=== PATIENT | female | born 1960 | race American Indian/Alaskan Native ===

== ENCOUNTER 2017-11-29 22:21 | Emergency (ER) | payer MEDICAID ==
[2017-11-29 22:22] VITALS: BMI 70.4
[2017-11-29] MEDS ORDERED: Tramadol 25 mg PO STA (22:55)
--- NOTE | 2017-11-30 01:02 | C.PDOC ---
History Of Present Illness 57 y/o female presents to the ED complaining of left great toe injury, sustained today. States she tripped while walking to temple, injuring the toe. Patient was able to ambulate to temple and back but noticed worsening pain upon arrival home. No numbness, tingling, or focal weakness. - HPI Time Seen by Provider: 11/29/17 22:44 Chief Complaint (Nursing): Trauma History Per: Patient History/Exam Limitations: no limitations Injury Occurred (Timing): Today @ (this morning) Past Medical History Reviewed: Historical Data, Nursing Documentation, Vital Signs Vital Signs: Last Vital Signs Temp 98.2 F 11/30/17 01:15 Pulse 78 11/30/17 01:15 Resp 20 11/30/17 01:15 BP 142/74 11/30/17 01:15 Pulse Ox 98 11/30/17 03:58 - Medical History PMH: CHF, HTN, Hypothyroidism, Pulmonary Embolism (silvestre arms) Family History: States: Unknown Family Hx - Social History Hx Tobacco Use: No Hx Alcohol Use: No Hx Substance Use: No - Immunization History Hx Tetanus Toxoid Vaccination: No Hx Influenza Vaccination: No Hx Pneumococcal Vaccination: No Review Of Systems Except As Marked, All Systems Reviewed And Found Negative. Musculoskeletal: Positive for: Other (left great toe pain) Neurological: Negative for: Weakness, Numbness (and tingling) Physical Exam - Physical Exam Appears: Non-toxic, No Acute Distress, Other (Morbidly obese) Skin: Normal Color, Warm, Dry Head: Atraumatic, Normacephalic Eye(s): bilateral: Normal Inspection, PERRL Neck: Normal ROM, Supple Extremity: Tenderness (to the left great toe, at distal DIP. No erythema or warmth), No Calf Tenderness, Capillary Refill (normal), No Deformity, Swelling ( chronic bilateral lower leg edema), Other (Chronic skin changes to bilateral feet and ankles) Pulses: Left Dorsalis Pedis: Normal, Right Dorsalis Pedis: Normal Neurological/Psych: Oriented x3, Normal Speech, Normal Cranial Nerves, Normal Motor, Normal Sensation Gait: Steady ED Course And Treatment O2 Sat by Pulse Oximetry: 98 (RA) Pulse Ox Interpretation: Normal - Other Rad x-ray L great toe X-Ray: Interpreted by Me, Viewed By Me Interpretation: (+) fracture DIP Left great toe Progress Note: Ordered x-ray of left great toe and UA. Given Tramadol PO. Discussed x-ray findings with patient, all questions answered. Patient placed in ortho shoeby RN. Advised to follow up with podiatry. 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
[2017-11-30 01:17] VITALS: BP 142/74; PULSE 78; RESP 20; TEMP 98.2
[2017-11-30 03:53] VITALS: O2SAT 98
--- NOTE | 2017-11-30 13:24 | RAD ---
PROCEDURE: Radiographs of the left great toe. TECHNIQUE:: AP radiograph of the left foot, with oblique and lateral view of the left great toe. COMPARISON: None. FINDINGS: BONES: Nondisplaced intra-articular fracture of the 1st distal phalanx. Hook shaped osteophyte along the lateral base of the 1st proximal phalanx. JOINTS: Normal. SOFT TISSUES: Regional soft tissue swelling. OTHER FINDINGS: None. IMPRESSION: Nondisplaced intra-articular fracture of the 1st distal phalanx.
== END 2017-11-30 01:17 | disposition home or self-care (01) ==
LOC: C.ER 22:21
DX: S92.422A Displaced fracture of distal phalanx of left great toe, initial encounter for closed fracture (principal); W01.0XXA Fall on same level from slipping, tripping and stumbling without subsequent striking against object, initial encounter; I10 Essential (primary) hypertension; I50.9 Heart failure, unspecified; E03.9 Hypothyroidism, unspecified